=== PATIENT | male | born 1990 | race Two or more races ===

== ENCOUNTER 2021-08-27 13:54 | Emergency (ER) | payer MEDICAID, OTHER ==
[~2021-08-27] VITALS: Ht 175.3 cm; Wt 100.2 kg
[2021-08-27 15:52] VITALS: BP 129/85
[2021-08-27] MEDS ORDERED: NAP500T PO (15:54)
== END 2021-08-27 17:05 | disposition home or self-care (01) ==
LOC: ER 13:54 → EDBD 13:54 → ER 17:05
DX: S63.271A Dislocation of unspecified interphalangeal joint of left index finger, initial encounter (principal); X58.XXXA Exposure to other specified factors, initial encounter; Y93.89 Activity, other specified; Y92.89 Other specified places as the place of occurrence of the external cause; Y99.8 Other external cause status
CPT/HCPCS: 26770; 73140